=== PATIENT | male | born 1995 | race Caucasian/White ===

== ENCOUNTER 2016-12-01 19:01 | Emergency (ER) | payer BC ==
[~2016-12-01] VITALS: Ht 172.7 cm; Wt 65.8 kg
[~2016-12-01 19:01] MED LIST: CHOL1000 PO; CITA10TA4 PO; CYAN100020 SL; FLUT0.15 NAE
[2016-12-01 19:31] VITALS: Ht 172.7 cm; Wt 65.8 kg
[2016-12-01] MEDS ORDERED: OXYCODONE IR HOME PACK PO ONE (20:30)
[2016-12-01] MEDS ORDERED: AMOXICIL/CLAVU 875MG HOME PACK PO ONE (20:30)
[2016-12-01] MEDS ORDERED: METH4PAK PO (20:36)
[2016-12-01] MEDS ORDERED: AMOX875T PO (20:36)
[2016-12-01] MEDS ORDERED: OXYC1TAB3 PO (20:36)
[2016-12-01 20:43] VITALS: BP 156/85; PULSE 88; TEMP 37.2; O2SAT 96
--- NOTE | 2016-12-01 21:07 | EMERGENCY ROOM VISIT NOTE ---
History Report prepared by Trina: Misael Vitale Under the Supervision of: Dr. Misael Keith M.D. First contact with patient: 20:14 Chief Complaint: SORETHROAT Stated Complaint: FATIGUE, SORE THROAT, LUMP ON TONGUE IN BACK History of Present Illness The patient is a 20 year old male who presents to the Emergency Room with complaints of persistent sore throat beginning a few days ago. He notes he has been fatigued, and has noted a lump on the left side of his tongue. He states his sore throat is worsened with talking. He reports having some cough, but denies any nausea, vomiting, abdominal pain, or diarrhea. The patient notes having a history of anxiety for which he takes citalopram, and has had mononucleosis in the past. He states he has been around his grandmother recently , who has pneumonia. The patient has no known drug allergies. Source of History: patient Onset: a few days ago Position: throat Quality: other (sore throat) Timing: other (persistent) Modifying Factors (Worsening): other (talking) Associated Symptoms: + cough, No abdominal pain, No diarrhea, No nausea, No vomiting Review of Systems See HPI for pertinent positives & negatives. A total of 10 systems reviewed and were otherwise negative. Past Medical & Surgical Medical Problems: (1) History of anxiety (2) History of mononucleosis Old medical records were reviewed. Nurse's notes were reviewed and I agree with. Family History No pertinent family history stated. Social History Smoking Status: Never Smoker Drug Use: none Marital Status: single Current/Historical Medications Scheduled Amoxicillin & Pot Clavulanate (Augmentin 875-125 mg), 875 MG PO BID Cholecalciferol (Vitamin D3), 1 TAB PO QAM Citalopram Hydrobromide (Citalopram Hydrobromide), 1 TAB PO QAM Cyanocobalamin (Vitamin B12), 1 DOSE SL QAM Methylprednisolone (Medrol Dosepak), 0 PO DAILY Scheduled PRN Fluticasone Propionate (Nasal) (Flonase Allergy Relief), 1 SPRAY SHILPI DIRECTED PRN for RN Oxycodone Immediate Rel Tab (Roxicodone Ir), 1-2 TAB PO Q4H PRN for Severe Pain Allergies Coded Allergies: NO KNOWN DRUG ALLERGIES (Verified Allergy, Unknown, ., 09/16/16) Physical Exam Vital Signs Date Time Temp Pulse Resp B/P Pulse Ox O2 Delivery O2 Flow Rate FiO2 12/01/16 20:43 37.2 88 18 156/85 96 12/01/16 19:31 37.2 93 18 144/90 97 Room Air 12/01/16 19:31 97 Room Air Pain Rating (0-10): 0 Physical Exam General: Mildly ill appearing but non toxic young male complaining of sore throat; speaking and swallowing with no difficulty, no drooling. HEENT: Normal cephalic atraumatic. Pupils are equal round and reactive to light. Sclerae anicteric. Extraocular movements are intact. Oropharynx: no asymmetry or abscess, mild swelling and redness in posterior oropharynx. No swelling of the mouth lips or tongue. Neck: Mild lymphadenopathy. Chest: Clear to auscultation bilaterally. No wheezes or rhonchi. No increased work of breathing. Heart: regular rate and rhythm. Abdomen: Soft nontender, nondistended without rebound guarding or rigidity. Extremities: No cyanosis clubbing or edema. No calf tenderness or assymetry Spine/Back. Non tender to palpation. No CVA tenderness Skin: Good turgor without rashes. Neurologic exam: Cranial nerves two through 12 are intact. Motor and sensation are intact and symmetrical throughout. Medical Decision & Procedures Laboratory Results Date/Time Source Procedure Growth Status 12/01/16 19:52 Throat Group A Streptococcus Screen - Final SPECIMEN NEGATIVE FOR GROUP A BETA ST... Complete 12/01/16 19:52 Throat Group A Streptococcus Screen ([place]) - Final NO GROUP A BETA STREP ISOLATED. Complete Medications Administered Medications (Trade) Dose Ordered Sig/Yesenia Route Start Time Stop Time Status Last Admin Dose Admin Amoxicillin/ Clavulanate Potassium (Augmentin 875MG Home Pack) 1 homepack UD ONCE PO 12/01/16 20:30 12/01/16 20:31 DC 12/01/16 20:33 1 HOMEPACK Prednisone (PredniSONE TAB) 60 mg NOW STAT PO 12/01/16 20:25 12/01/16 20:26 DC 12/01/16 20:33 60 MG Oxycodone HCl (Roxicodone Immediate Rel 5MG Home Pack) 1 homepack UD ONCE PO 12/01/16 20:30 12/01/16 20:31 DC 12/01/16 20:32 1 HOMEPACK ED Course 2017: Past medical records reviewed. The patient was evaluated in room A8, and a complete history and physical examination were performed. 2024: Ordered Prednisone 60 mg PO. 2029: Ordered Oxycodone HCl 1 homepack PO, and Amoxicillin/Clavulanate Potassium 1 homepack PO. 2034: Upon reevaluation, the patient is doing well. I discussed the results and treatment plan with the patient. He verbalized agreement of the treatment plan. The patient was discharged home. Medical Decision Differentials include strep, viral illness, abscess, dehydration, and electrolyte or metabolic abnormality. This patient comes in as described above. He's had a sore throat. He looks well on exam and is not drooling and is nontoxic. he does have some mild posterior oropharyngeal swelling but no evidence of abscess or Samson's angina. Strep screen was negative however given his symptoms. I will put him on Augmentin 875 mg twice a day first dose given here as well as prescription. he was also given a course of steroids and the first dose was given here as well as a prescription for OxyIR 5 mg, one or 2 pills every 4-6 hours as needed. he was warned that OxyIR could make him drowsy and do not take before drinking, driving, working. He should return if: increasing pain, shortness of breath, any new problems or concerns. He was happy with the plan and discharged to home Impression Primary Impression: Pharyngitis Scribe Attestation The scribe's documentation has been prepared under my direction and personally reviewed by me in its entirety. I confirm that the note above accurately reflects all work, treatment, procedures, and medical decision making performed by me. Departure Information Dispostion Home / Self-Care Prescriptions Oxycodone Immediate Rel Tab (ROXICODONE IR) 5 Mg Tab 1-2 TAB PO Q4H Y for Severe Pain, #14 TAB Prov: Misael Keith M.D. 12/01/16 Methylprednisolone (MEDROL DOSEPAK) 4 Mg Cheko 0 PO DAILY, #1 PKT Prov: Misael Keith M.D. 12/01/16 Amoxicillin & Pot Clavulanate (Augmentin 875-125 mg) 1 Tab Tab 875 MG PO BID, #20 TAB Prov: Misael Keith M.D. 12/01/16 Referrals RV. Graves MD (PCP) Forms HOME CARE DOCUMENTATION FORM, IMPORTANT VISIT INFORMATION Patient Instructions My [facility] Additional Instructions Rest. Drink plenty of fluids. Use Augmentin 875 mg twice a dayantibiotic Use Medrol Dosepak as directed steroid will help decrease inflammation May use ibuprofen 400 mg every 6 hours, take with food For more severe pain, may use OxyIR 5 mg, one or 2 pills every 4-6 hours as needed OxyIR may make you drowsy do not take before drinking, driving, working Return if: Increasing pain, worsening of symptoms, shortness of breath, not tolerating fluids, any new problems or concerns.
== END 2016-12-01 20:44 | disposition home or self-care (01) ==
LOC: C.EDB 19:03 → C.EDA 20:44
DX: J02.9 Acute pharyngitis, unspecified (principal); F41.9 Anxiety disorder, unspecified

== ENCOUNTER → 2017-03-03 | Outpatient (CLI) | payer OTHER ==
[~2017-03-03] MED LIST changes: +OXYC1TAB3 PO
[2017-03-05 15:53] LABS: CHLAMYDIA TRACH RNA*** NOT DETECTED (NOT DETECTED); GC (NEIS GONORRHOEAE)RNA** NOT DETECTED (NOT DETECTED)
== END | disposition home or self-care (01) ==
LOC: C.LAB1850 13:10
PROVIDERS: ATTEND Physician Assistant
DX: Z72.51 High risk heterosexual behavior (principal)

== ENCOUNTER → 2017-06-01 | Outpatient (CLI) | payer BC | END | disposition home or self-care (01) | LOC: C.LAB1850 13:13 | PROVIDERS: ATTEND Internal Medicine | DX: Z20.2 Contact with and (suspected) exposure to infections with a predominantly sexual mode of transmission (principal) ==

== ENCOUNTER → 2018-02-28 | Outpatient (CLI) | payer BC ==
[~2018-02-28] MED LIST changes: -OXYC1TAB3 PO
== END | disposition home or self-care (01) ==
LOC: C.LAB1850 16:47
PROVIDERS: ATTEND Physician Assistant
DX: Z20.2 Contact with and (suspected) exposure to infections with a predominantly sexual mode of transmission (principal)

== ENCOUNTER → 2018-06-02 | Outpatient (CLI) | payer BC ==
[2018-06-02 10:35] LABS: HEP C IGG 13 YRS+OLDER_RFLX NEG (NEG)
[2018-06-02 11:00] LABS: ALBUMIN 4.2 gm/dl (3.4-5.0); ALKALINE PHOSPHATASE 87 U/L (45-117); ALT/SGPT 18 U/L (12-78); AST/SGOT 10 U/L (15-37); BLOOD UREA NITROGEN 13 mg/dl (7-18); CALCIUM 9.3 mg/dl (8.5-10.1); CARBON DIOXIDE 25 mmol/L (21-32); CREATININE 1.09 mg/dl (0.60-1.40); GLUCOSE 97 mg/dl (70-99); POTASSIUM 3.9 mmol/L (3.5-5.1); SODIUM 138 mmol/L (136-145); TOTAL PROTEIN 7.3 gm/dl (6.4-8.2)
[2018-06-04 13:29] LABS: HERPES SIMPLEX AB IGG-2 < 0.90 INDEX (< 0.90)
== END | disposition home or self-care (01) ==
LOC: C.LAB1850 08:27
PROVIDERS: ATTEND Internal Medicine
DX: E55.9 Vitamin D deficiency, unspecified (principal); E53.8 Deficiency of other specified B group vitamins; K21.9 Gastro-esophageal reflux disease without esophagitis; F31.9 Bipolar disorder, unspecified; Z11.3 Encounter for screening for infections with a predominantly sexual mode of transmission; Z13.29 Encounter for screening for other suspected endocrine disorder; Z13.0 Encounter for screening for diseases of the blood and blood-forming organs and certain disorders involving the immune mechanism; Z13.1 Encounter for screening for diabetes mellitus